=== PATIENT | female | born 1975 | race Caucasian/White ===

== ENCOUNTER 2017-09-08 17:40 | Emergency (ER) | payer OTHER ==
[~2017-09-08] VITALS: Ht 172.7 cm; Wt 87.3 kg
[~2017-09-08 17:40] MED LIST: AMOX1TAB61 PO
--- NOTE | 2017-09-08 18:12 | EKG ---
[address] [address] Test Date: 2017-09-08 Test Time: 18:08:40 Pat Name: AILEEN NANCE Department: Room: Gender: F Lot Associate: : 1975 Requested By: Jose Manuel DODSON Order Number: [id number] Reading MD: Measurements Intervals [place] Rate: 58 P: 57 VA: 142 QRS: 22 QRSD: 78 T: 25 QT: 456 QTc: 451 Interpretive Statements SINUS RHYTHM LOW LIMB LEAD VOLTAGE NO SPECIFIC ECG ABNORMALITIES RI6.01 No previous ECG available for comparison
--- NOTE | 2017-09-08 18:21 | PHYS DOC ---
Past History Past Medical History: No Pertinent History Past Surgical History: , Tubal ligation Alcohol Use: None Drug Use: None Adult General Chief Complaint Chief Complaint: SHORTNESS OF BREATH [facility] HPI Patient is a [id number] female with no significant past medical history presents to complaints of shortness of fair that happen with exertion when she was walking to her car after she started the car this started expressing some mild chest discomfort. patient did not break into a sweat did not have any vomiting patient does not have any complaints about abdominal pain or back pain. patient also denies extremity pain or swelling. patient is not a smoker, not on control no recent travel or recent illnesses no trauma. patient's sister did have a clot in her lungs at the age of 38, father had significant heart disease but the age 55. at the time of the ed examination the patient's vital signs are unremarkable Review of Systems Review of Systems Constitutional: Denies fever or chills [] HENT: Denies nasal congestion or sore throat [] Respiratory: Denies shortness of breath. Yes to nonbloody cough Cardiovascular: No additional information not addressed in HPI [] GI: Denies abdominal pain, nausea, vomiting, r diarrhea [] : Denies dysuria or hematuria [] Musculoskeletal: Denies back pain or joint pain or swelling Integument: Denies rash or skin lesions [] Neurologic: Denies headache, focal weakness or sensory changes [] All other systems were reviewed and found to be within normal limits, except as documented in this note. Allergies Allergies Allergies Coded Allergies Type Severity Reaction Last Updated Verified No Known Drug Allergies 09/08/17 No Physical Exam Physical Exam Constitutional: Well developed, well nourished, no acute distress, non-toxic appearance. [] HENT: Normocephalic, atraumatic, bilateral external ears normal, oropharynx moist, no oral exudates, nose normal. [] Eyes: EOMI, conjunctiva normal, no discharge. [] Neck: Normal range of motion, no tenderness, supple, no stridor. No JVD Cardiovascular:Heart rate regular rhythm, no murmur, equal pulses, normal perfusion. Heart rate at time of the exam is 66 Lungs & Thorax: Bilateral breath sounds clear to auscultation on no tachypnea. O2 sats at the time of the exam 100% on room air Abdomen: Bowel sounds normal, soft, no tenderness, no masses, no pulsatile masses. [] Skin: Warm, dry, no erythema, no rash. [] Back: Normal range of motion Extremities: No tenderness, no signs of DVT, ROM intact, no edema. [] Neurologic: Alert and oriented X 3, normal motor function, and relates in the ED with normal gait and without assistance, no focal deficits noted. [] Psychologic: Affect normal, judgement normal, mood normal. [] EKG EKG 1816 58, sinus bradycardia, no STEMI[] Radiology/Procedures Radiology/Procedures Preliminary chest x-ray read no acute findings[] Course & Med Decision Making Course & Med Decision Making Pertinent Labs and Imaging studies reviewed. (See chart for details) 193 patient in no distress, vital signs unremarkable. Patient has been notified regarding results. Patient has been off her prolonged observation in the ED and a repeat troponin at a later time but patient declines, she states she feels fine and she will follow-up with the PCP for additional testing. Strict return precautions have been discussed, and educational materials have been provided [] Dragon Disclaimer Dragon Disclaimer This electronic medical record was generated, in whole or in part, using a voice recognition dictation system. Departure Departure: Impression: Primary Impression: Dyspnea Additional Impression: Nonspecific chest pain Disposition: HOME, SELF-CARE Condition: STABLE Referrals: PCP,NO (PCP) Please follow with your doctor or at one of the clinics in the list provided to you for recheck and reevaluation in 2-4 days Patient Instructions: Chest Pain (Nonspecific) Problem Qualifiers Jose Manuel DODSON MD Sep 08, 2017 18:21
[2017-09-08 18:58] LABS: BASO # 0.1 x10^3/uL (0.0-0.2); BASO % 1 % (0-3); EOS # 0.1 x10^3/uL (0.0-0.7); EOS % 2 % (0-3); HEMATOCRIT 41.8 % (36.0-47.0); HEMOGLOBIN 14.2 g/dL (12.0-15.5); LYMPH # 1.6 x10^3/uL (1.0-4.8); LYMPH % 23 % (24-48); MEAN CORPUSCULAR HEMOGLOBIN 30 pg (25-35); MEAN CORPUSCULAR HGB CONC 34 g/dL (31-37); MEAN CORPUSCULAR VOLUME 87 fL (79-100); MONO # 0.6 x10^3/uL (0.0-1.1); MONO % 9 % (0-9); NEUT # 4.3 x10^3uL (1.8-7.7); NEUT % 65 % (31-73); PLATELET COUNT 210 x10^3/uL (140-400); RED BLOOD COUNT 4.78 x10^6/uL (3.50-5.40); RED CELL DISTRIBUTION WIDTH 12.9 % (11.5-14.5); WHITE BLOOD COUNT 6.7 x10^3/uL (4.0-11.0)
[2017-09-08 19:04] LABS: CALCIUM 9.1 mg/dL (8.5-10.1); GFR 60.8; POTASSIUM 3.7 mmol/L (3.5-5.1)
[2017-09-08 19:45] VITALS: BP 109/63
--- NOTE | 2017-09-09 08:14 | RAD ---
Chest, 2 views, 09/08/2017: History: Shortness of breath The heart size and pulmonary vascularity are normal. No pulmonary infiltrate is seen. There is no evidence of pleural fluid. IMPRESSION: No acute cardiopulmonary abnormality is detected.
== END 2017-09-08 19:45 | disposition home or self-care (01) ==
LOC: ER 17:40
DX: R06.00 Dyspnea, unspecified (principal); R07.89 Other chest pain
CPT/HCPCS: 36415; 71046; 80048; 84484; 85025; 85379; 93005; 99285-25